=== PATIENT | female | born 1955 | race Caucasian/White ===

== ENCOUNTER 2016-07-10 14:00 | Inpatient (IN) | payer OTHER ==
--- NOTE | 2016-07-10 14:27 | ED ---
SOB HPI - General Chief Complaint: Shortness of Breath Stated Complaint: Vaginal bleeding Time Seen by Provider: 07/10/16 14:00 Source: patient, EMS, RN notes reviewed Mode of arrival: EMS Limitations: no limitations - History of Present Illness Initial Comments: This is a 60-year-old female who states she has not seen a doctor in 25 years who is brought in today because of vaginal bleeding has been cooperative past 2 days and shortness of breath. The patient is a smoker she states she's never been diagnosed with COPD. She states she's had right red blood from her vagina she Have a history of vaginal warts. She also states she's had bowel surgery because of blockages in the past. She denies any nausea vomiting she denies any difficulty with bowel movements or passing gas. She does states she has not eaten any food for 2 days she feels very weak. She was brought in by EMS. On arrival she was found have a blood pressure 94/52 she denies any fevers chills sweats she states she does have intermittent abdominal pain. Patient states she also lost her voice over the last couple days. MD Complaint: shortness of breath - Related Data Home Medications Medication Instructions Recorded Confirmed No Known Home Medications [No 07/10/16 07/10/16 Known Home Medications] Allergies Allergy/AdvReac Type Severity Reaction Status Date / Time Penicillins Allergy Unknown Verified 07/10/16 14:30 Review of Systems ROS Statement: Those systems with pertinent positive or pertinent negative responses have been documented in the HPI. ROS Other: All systems not noted in ROS Statement are negative. General Exam - General Exam Comments Initial Comments: This is a well-developed Appearing Female She Does Appear to Be Pale and Somewhat Icteric the patient does demonstrate hoarseness of her voice. Limitations: no limitations General appearance: alert, anxious Head exam: Present: atraumatic Eye exam: Present: PERRL, EOMI ENT exam: Present: mucous membranes dry Neck exam: Present: full ROM. Absent: tenderness, meningismus, lymphadenopathy Respiratory exam: Present: decreased breath sounds Cardiovascular Exam: Present: tachycardia, normal heart sounds. Absent: systolic murmur, diastolic murmur, rubs, gallop, clicks GI/Abdominal exam: Present: other (patient does demonstrate a well-healed no that thi) Rectal exam: Present: other (I did perform rectal exam no gross blood noted the patient's entire perineum does appear to be covered by what appears be genital warts. He was at somewhat painful examination though there is no masses in the anal canal.) External exam: Present: lesions, other (Multiple lesions consistent with genital warts. On a unable to perform a vaginal exam or identified the urethra at this time. No gross bleeding at this time marked tenderness to any type of manipulation.) Extremities exam: Present: normal inspection, full ROM, normal capillary refill. Absent: tenderness, pedal edema, joint swelling, calf tenderness Back exam: Present: normal inspection Neurological exam: Present: alert, oriented X3, CN II-XII intact Psychiatric exam: Present: flat affect Skin exam: Present: warm, dry, intact, pallor Course Vital Signs 07/10/16 07/10/16 07/10/16 14:03 14:07 14:10 Temperature 97.6 F Pulse Rate 49 L 116 H Respiratory 16 20 Rate Blood Pressure 107/57 89/54 O2 Sat by Pulse 94 L Oximetry 07/10/16 07/10/16 07/10/16 14:15 16:03 16:53 Temperature Pulse Rate 60 112 H Respiratory 16 16 Rate Blood Pressure 94/52 103/55 98/61 O2 Sat by Pulse 94 L 98 Oximetry - Reevaluation(s) Reevaluation #1: 07/10/16 17:36 Ventilation patient reveals that she is awake alert and oriented. Patient was found to be extremely anemic and was later found that she also had pancreatitis. Reevaluation #2: 07/10/16 17:36 I did discuss findings with the patient and her as well as a neighbor who was present and did find her at home. Patient will be admitted patient was seen in the emergency department by Dr. Kennedy Reevaluation #3: 07/10/16 17:37 I did discuss case with Dr. Justice for ICU admission. Medical Decision Making - Medical Decision Making I did discuss the findings with the patient and family members as well as the hospitalists and intensivists. Patient be admitted CAT scan of the chest abdomen pelvis as well as brain will be ordered. Neoplasm is suspected. Patient will get a blood transfusion. She currently is hemodynamically relatively stable. - Lab Data Result diagrams: 07/10/16 15:50 07/10/16 15:50 Lab Results 07/10/16 07/10/16 07/10/16 Range/Units 14:30 14:56 15:50 WBC 45.7 H* (3.8-10.6) k/uL RBC 1.78 L (3.80-5.40) m/uL Hgb 3.5 L* (11.4-16.0) gm/dL Hct 12.2 L* (34.0-46.0) % MCV 68.3 L (80.0-100.0) fL MCH 19.8 L (25.0-35.0) pg MCHC 29.0 L (31.0-37.0) g/dL RDW 17.5 H (11.5-15.5) % Plt Count 634 H (150-450) k/uL Neutrophils % 93 % Lymphocytes % 4 % Monocytes % 2 % Eosinophils % 0 % Basophils % 0 % Neutrophils # 42.6 H (1.3-7.7) k/uL Lymphocytes # 1.8 (1.0-4.8) k/uL Monocytes # 0.9 (0-1.0) k/uL Eosinophils # 0.0 (0-0.7) k/uL Basophils # 0.1 (0-0.2) k/uL Manual Slide Review Performed Toxic Granulation Present Polychromasia Present Hypochromasia Marked Poikilocytosis (manual Present Anisocytosis Slight Microcytosis Marked Tear Drop Cells Present Sodium (137-145) mmol/L Potassium (3.5-5.1) mmol/L Chloride (98-107) mmol/L Carbon Dioxide (22-30) mmol/L Anion Gap mmol/L BUN (7-17) mg/dL Creatinine (0.52-1.04) mg/dL Est GFR (MDRD) Af Amer (>60 ml/min/1.73 sqM) Est GFR (MDRD) Non-Af (>60 ml/min/1.73 sqM) Glucose (74-99) mg/dL Calcium (8.4-10.2) mg/dL Magnesium (1.6-2.3) mg/dL Total Bilirubin (0.2-1.3) mg/dL AST (14-36) U/L ALT (9-52) U/L Alkaline Phosphatase (38-126) U/L Ammonia 21 (<30) umol/L Total Creatine Kinase (30-135) U/L CK-MB (CK-2) (0.0-2.4) ng/mL CK-MB (CK-2) Rel Index Total Protein (6.3-8.2) g/dL Albumin (3.5-5.0) g/dL Amylase (30-110) U/L Lipase (23-300) U/L Stool Occult Blood Negative (Negative) 07/10/16 07/10/16 Range/Units 15:50 15:50 WBC (3.8-10.6) k/uL RBC (3.80-5.40) m/uL Hgb (11.4-16.0) gm/dL Hct (34.0-46.0) % MCV (80.0-100.0) fL MCH (25.0-35.0) pg MCHC (31.0-37.0) g/dL RDW (11.5-15.5) % Plt Count (150-450) k/uL Neutrophils % % Lymphocytes % % Monocytes % % Eosinophils % % Basophils % % Neutrophils # (1.3-7.7) k/uL Lymphocytes # (1.0-4.8) k/uL Monocytes # (0-1.0) k/uL Eosinophils # (0-0.7) k/uL Basophils # (0-0.2) k/uL Manual Slide Review Toxic Granulation Polychromasia Hypochromasia Poikilocytosis (manual Anisocytosis Microcytosis Tear Drop Cells Sodium 135 L (137-145) mmol/L Potassium 3.9 (3.5-5.1) mmol/L Chloride 111 H (98-107) mmol/L Carbon Dioxide 16 L (22-30) mmol/L Anion Gap 8 mmol/L BUN 22 H (7-17) mg/dL Creatinine 0.73 (0.52-1.04) mg/dL Est GFR (MDRD) Af Amer >60 (>60 ml/min/1.73 sqM) Est GFR (MDRD) Non-Af >60 (>60 ml/min/1.73 sqM) Glucose 106 H (74-99) mg/dL Calcium 8.4 (8.4-10.2) mg/dL Magnesium 2.1 (1.6-2.3) mg/dL Total Bilirubin 0.3 (0.2-1.3) mg/dL AST 31 (14-36) U/L ALT 26 (9-52) U/L Alkaline Phosphatase 130 H (38-126) U/L Ammonia (<30) umol/L Total Creatine Kinase 513 H (30-135) U/L CK-MB (CK-2) 24.9 H* (0.0-2.4) ng/mL CK-MB (CK-2) Rel Index 4.9 Total Protein 5.1 L (6.3-8.2) g/dL Albumin 2.0 L (3.5-5.0) g/dL Amylase 319 H* (30-110) U/L Lipase 1133 H (23-300) U/L Stool Occult Blood (Negative) - EKG Data -: EKG Interpreted by Me EKG shows normal: sinus rhythm (Sinus tachycardia rate of 112. Interval 126 QRS duration 74 daily since QTC of 334/[address] configuration.) - Radiology Data Radiology results: report reviewed (I did review the initial imaging a reports no acute findings.), image reviewed Critical Care Time Critical Care Time: Yes Critical Care Time: 37 minutes of critical care time which includes initial discussion with paramedics history physical labs x-rays evaluation the above. Reevaluation the patient and discussion with the patient family members as well as discussion with the admitting physician and radiological health specialist. Documentation of the above and initial orders. Disposition Clinical Impression: Anemia, Pancreatitis, Weakness, Genital warts, Dehydration Disposition: ADMITTED IP TO THIS [facility] Condition: Serious
[2016-07-10] MEDS ORDERED: SODIUM CHLORIDE 0.9% 500 ML IV STA (15:12)
[2016-07-10] MEDS ORDERED: SODIUM CHLORIDE 0.9% 1,000 ML IV STA (15:12)
--- NOTE | 2016-07-10 16:16 | XR ---
EXAMINATION TYPE: XR chest 2V DATE OF EXAM: 07/10/2016 4:13 PM COMPARISON: NONE HISTORY: Shortness of breath TECHNIQUE: Frontal and lateral views of the chest are obtained. FINDINGS: Scattered senescent parenchymal changes noted. Hyperinflation compatible with COPD. No evidence for infiltrate. No evidence for atelectasis. Heart size is stable. Mediastinal structures are stable and grossly unremarkable. No evidence for hilar prominence. Degenerative changes dorsal spine. IMPRESSION: 1. No evidence for acute pulmonary disease.
--- NOTE | 2016-07-10 16:17 | XR ---
EXAMINATION TYPE: XR abdomen 1V DATE OF EXAM: 07/10/2016 4:13 PM COMPARISON: NONE HISTORY: Pain TECHNIQUE: Single supine KUB image of the abdomen is obtained FINDINGS: Small bowel demonstrates no evidence for dilatation or air fluid levels. Gas and fecal material is seen in non-distended colon. No convincing evidence for pneumoperitoneum. No unusual calcifications. The lung bases are clear. The osseous structures are intact. IMPRESSION: 1. Overall nonobstructive bowel gas pattern.
[2016-07-10 16:24] LABS: Anisocytosis Slight; Basophils # (A) 0.1 k/uL (0-0.2); Basophils % (A) 0 %; CHCM 25.1; Eosinophils % (A) 0 %; HDW 2.87; Hypochromasia Marked; Luc # (Auto) 0.29; Luc % (Auto) 1; Lymphocytes # (A) 1.8 k/uL (1.0-4.8); Lymphocytes % (A) 4 %; MCH 19.8 pg (25.0-35.0); MCV 68.3 fL (80.0-100.0); Mean Platelet Volume 6.3; Microcytosis Marked; Monocytes # (A) 0.9 k/uL (0-1.0); Monocytes % (A) 2 %; Neutrophils # (A) 42.6 k/uL (1.3-7.7); Neutrophils % (A) 93 %; RBC 1.78 m/uL (3.80-5.40); RDW 17.5 % (11.5-15.5); WBC (Perox) 47.22
[2016-07-10 16:27] LABS: HGB 3.5 gm/dL (11.4-16.0); WBC 45.7 k/uL (3.8-10.6)
[2016-07-10 16:28] LABS: HCT 12.2 % (34.0-46.0)
[2016-07-10 16:30] LABS: ALT 26 U/L (9-52); AST 31 U/L (14-36); Alkaline Phosphatase 130 U/L (38-126); Anion Gap 8 mmol/L; Blood Urea Nitrogen 22 mg/dL (7-17); Calcium 8.4 mg/dL (8.4-10.2); Carbon Dioxide 16 mmol/L (22-30); Chloride 111 mmol/L (98-107); Glucose 106 mg/dL (74-99); Magnesium 2.1 mg/dL (1.6-2.3); Non-African American GFR(MDRD) >60 (>60 ml/min/1.73 sqM); Potassium 3.9 mmol/L (3.5-5.1); Sodium 135 mmol/L (137-145); Total Bilirubin 0.3 mg/dL (0.2-1.3); Total Protein 5.1 g/dL (6.3-8.2)
[2016-07-10 16:44] LABS: Amylase 319 U/L (30-110)
[2016-07-10 16:51] LABS: Creatine Kinase MB 24.9 ng/mL (0.0-2.4)
[2016-07-10 16:59] LABS: Manual Review Performed; Polychromasia Present; Tear Drop Cells Present
[2016-07-10 17:01] LABS: Toxic Granulation Present
[2016-07-10] MEDS ORDERED: RX INFO: IV CONTRAST WAS GIVEN 1 EACH MISC MISCELLANE PRN (17:19)
[2016-07-10] MEDS ORDERED: IOHEXOL 350 MG/ML 25 ML BOTTLE (ORAL USE) PO PRN (17:19)
[2016-07-10] MEDS ORDERED: NALOXONE 0.4 MG/ML 1 ML VIAL IV PRN (17:40)
--- NOTE | 2016-07-10 17:40 | ED ---
Medical Decision Making - Lab Data Result diagrams: 07/10/16 15:50 07/10/16 15:50 Lab Results 07/10/16 07/10/16 07/10/16 Range/Units 14:30 14:56 15:50 WBC 45.7 H* (3.8-10.6) k/uL RBC 1.78 L (3.80-5.40) m/uL Hgb 3.5 L* (11.4-16.0) gm/dL Hct 12.2 L* (34.0-46.0) % MCV 68.3 L (80.0-100.0) fL MCH 19.8 L (25.0-35.0) pg MCHC 29.0 L (31.0-37.0) g/dL RDW 17.5 H (11.5-15.5) % Plt Count 634 H (150-450) k/uL Neutrophils % 93 % Lymphocytes % 4 % Monocytes % 2 % Eosinophils % 0 % Basophils % 0 % Neutrophils # 42.6 H (1.3-7.7) k/uL Lymphocytes # 1.8 (1.0-4.8) k/uL Monocytes # 0.9 (0-1.0) k/uL Eosinophils # 0.0 (0-0.7) k/uL Basophils # 0.1 (0-0.2) k/uL Manual Slide Review Performed Toxic Granulation Present Polychromasia Present Hypochromasia Marked Poikilocytosis (manual Present Anisocytosis Slight Microcytosis Marked Tear Drop Cells Present Sodium (137-145) mmol/L Potassium (3.5-5.1) mmol/L Chloride (98-107) mmol/L Carbon Dioxide (22-30) mmol/L Anion Gap mmol/L BUN (7-17) mg/dL Creatinine (0.52-1.04) mg/dL Est GFR (MDRD) Af Amer (>60 ml/min/1.73 sqM) Est GFR (MDRD) Non-Af (>60 ml/min/1.73 sqM) Glucose (74-99) mg/dL Calcium (8.4-10.2) mg/dL Magnesium (1.6-2.3) mg/dL Total Bilirubin (0.2-1.3) mg/dL AST (14-36) U/L ALT (9-52) U/L Alkaline Phosphatase (38-126) U/L Ammonia 21 (<30) umol/L Total Creatine Kinase (30-135) U/L CK-MB (CK-2) (0.0-2.4) ng/mL CK-MB (CK-2) Rel Index Total Protein (6.3-8.2) g/dL Albumin (3.5-5.0) g/dL Amylase (30-110) U/L Lipase (23-300) U/L Stool Occult Blood Negative (Negative) 07/10/16 07/10/16 Range/Units 15:50 15:50 WBC (3.8-10.6) k/uL RBC (3.80-5.40) m/uL Hgb (11.4-16.0) gm/dL Hct (34.0-46.0) % MCV (80.0-100.0) fL MCH (25.0-35.0) pg MCHC (31.0-37.0) g/dL RDW (11.5-15.5) % Plt Count (150-450) k/uL Neutrophils % % Lymphocytes % % Monocytes % % Eosinophils % % Basophils % % Neutrophils # (1.3-7.7) k/uL Lymphocytes # (1.0-4.8) k/uL Monocytes # (0-1.0) k/uL Eosinophils # (0-0.7) k/uL Basophils # (0-0.2) k/uL Manual Slide Review Toxic Granulation Polychromasia Hypochromasia Poikilocytosis (manual Anisocytosis Microcytosis Tear Drop Cells Sodium 135 L (137-145) mmol/L Potassium 3.9 (3.5-5.1) mmol/L Chloride 111 H (98-107) mmol/L Carbon Dioxide 16 L (22-30) mmol/L Anion Gap 8 mmol/L BUN 22 H (7-17) mg/dL Creatinine 0.73 (0.52-1.04) mg/dL Est GFR (MDRD) Af Amer >60 (>60 ml/min/1.73 sqM) Est GFR (MDRD) Non-Af >60 (>60 ml/min/1.73 sqM) Glucose 106 H (74-99) mg/dL Calcium 8.4 (8.4-10.2) mg/dL Magnesium 2.1 (1.6-2.3) mg/dL Total Bilirubin 0.3 (0.2-1.3) mg/dL AST 31 (14-36) U/L ALT 26 (9-52) U/L Alkaline Phosphatase 130 H (38-126) U/L Ammonia (<30) umol/L Total Creatine Kinase 513 H (30-135) U/L CK-MB (CK-2) 24.9 H* (0.0-2.4) ng/mL CK-MB (CK-2) Rel Index 4.9 Total Protein 5.1 L (6.3-8.2) g/dL Albumin 2.0 L (3.5-5.0) g/dL Amylase 319 H* (30-110) U/L Lipase 1133 H (23-300) U/L Stool Occult Blood (Negative) Disposition Clinical Impression: Anemia, Pancreatitis, Weakness, Genital warts, Dehydration Disposition: ADMITTED IP TO THIS [facility] Condition: Serious Referrals: None,Stated [Primary Care Provider] - 1-2 days Decision Time: 16:30
[2016-07-10] MEDS ORDERED: NICOTINE 14MG/24HR PATCH TRANSDERM STA (17:42)
--- NOTE | 2016-07-10 17:57 | ED ---
Medical Decision Making - Medical Decision Making Due to the fungating nature of the lesion SAND CUTTER OPERATOR is being consulted I did discuss the case with Dr. Jansen - Lab Data Result diagrams: 07/10/16 15:50 07/10/16 15:50 Lab Results 07/10/16 07/10/16 07/10/16 Range/Units 14:30 14:56 15:50 WBC 45.7 H* (3.8-10.6) k/uL RBC 1.78 L (3.80-5.40) m/uL Hgb 3.5 L* (11.4-16.0) gm/dL Hct 12.2 L* (34.0-46.0) % MCV 68.3 L (80.0-100.0) fL MCH 19.8 L (25.0-35.0) pg MCHC 29.0 L (31.0-37.0) g/dL RDW 17.5 H (11.5-15.5) % Plt Count 634 H (150-450) k/uL Neutrophils % 93 % Lymphocytes % 4 % Monocytes % 2 % Eosinophils % 0 % Basophils % 0 % Neutrophils # 42.6 H (1.3-7.7) k/uL Lymphocytes # 1.8 (1.0-4.8) k/uL Monocytes # 0.9 (0-1.0) k/uL Eosinophils # 0.0 (0-0.7) k/uL Basophils # 0.1 (0-0.2) k/uL Manual Slide Review Performed Toxic Granulation Present Polychromasia Present Hypochromasia Marked Poikilocytosis (manual Present Anisocytosis Slight Microcytosis Marked Tear Drop Cells Present Sodium (137-145) mmol/L Potassium (3.5-5.1) mmol/L Chloride (98-107) mmol/L Carbon Dioxide (22-30) mmol/L Anion Gap mmol/L BUN (7-17) mg/dL Creatinine (0.52-1.04) mg/dL Est GFR (MDRD) Af Amer (>60 ml/min/1.73 sqM) Est GFR (MDRD) Non-Af (>60 ml/min/1.73 sqM) Glucose (74-99) mg/dL Calcium (8.4-10.2) mg/dL Magnesium (1.6-2.3) mg/dL Total Bilirubin (0.2-1.3) mg/dL AST (14-36) U/L ALT (9-52) U/L Alkaline Phosphatase (38-126) U/L Ammonia 21 (<30) umol/L Total Creatine Kinase (30-135) U/L CK-MB (CK-2) (0.0-2.4) ng/mL CK-MB (CK-2) Rel Index Total Protein (6.3-8.2) g/dL Albumin (3.5-5.0) g/dL Amylase (30-110) U/L Lipase (23-300) U/L Stool Occult Blood Negative (Negative) 07/10/16 07/10/16 Range/Units 15:50 15:50 WBC (3.8-10.6) k/uL RBC (3.80-5.40) m/uL Hgb (11.4-16.0) gm/dL Hct (34.0-46.0) % MCV (80.0-100.0) fL MCH (25.0-35.0) pg MCHC (31.0-37.0) g/dL RDW (11.5-15.5) % Plt Count (150-450) k/uL Neutrophils % % Lymphocytes % % Monocytes % % Eosinophils % % Basophils % % Neutrophils # (1.3-7.7) k/uL Lymphocytes # (1.0-4.8) k/uL Monocytes # (0-1.0) k/uL Eosinophils # (0-0.7) k/uL Basophils # (0-0.2) k/uL Manual Slide Review Toxic Granulation Polychromasia Hypochromasia Poikilocytosis (manual Anisocytosis Microcytosis Tear Drop Cells Sodium 135 L (137-145) mmol/L Potassium 3.9 (3.5-5.1) mmol/L Chloride 111 H (98-107) mmol/L Carbon Dioxide 16 L (22-30) mmol/L Anion Gap 8 mmol/L BUN 22 H (7-17) mg/dL Creatinine 0.73 (0.52-1.04) mg/dL Est GFR (MDRD) Af Amer >60 (>60 ml/min/1.73 sqM) Est GFR (MDRD) Non-Af >60 (>60 ml/min/1.73 sqM) Glucose 106 H (74-99) mg/dL Calcium 8.4 (8.4-10.2) mg/dL Magnesium 2.1 (1.6-2.3) mg/dL Total Bilirubin 0.3 (0.2-1.3) mg/dL AST 31 (14-36) U/L ALT 26 (9-52) U/L Alkaline Phosphatase 130 H (38-126) U/L Ammonia (<30) umol/L Total Creatine Kinase 513 H (30-135) U/L CK-MB (CK-2) 24.9 H* (0.0-2.4) ng/mL CK-MB (CK-2) Rel Index 4.9 Total Protein 5.1 L (6.3-8.2) g/dL Albumin 2.0 L (3.5-5.0) g/dL Amylase 319 H* (30-110) U/L Lipase 1133 H (23-300) U/L Stool Occult Blood (Negative) Disposition Clinical Impression: Anemia, Pancreatitis, Weakness, Genital warts, Dehydration Disposition: ADMITTED IP TO THIS [facility] Condition: Serious
[2016-07-10] MEDS ORDERED: TEMAZEPAM 15 MG CAP PO PRN (18:44)
[2016-07-10] MEDS ORDERED: ALPRAZolam 0.25 MG TAB PO PRN (18:44)
[2016-07-10 18:50] LABS: Glucose,Whole Blood 102 mg/dL (75-99)
[2016-07-10 18:50] LABS: Glucose,Whole Blood 56 mg/dL (75-99)
[2016-07-10 19:06] VITALS: BMI 18.1
[2016-07-10 19:06] LABS: Appearance,Urine Cloudy (Clear); Bacteria,Urine Many /hpf; Bilirubin,Urine Negative (Negative); Glucose,Urine (UA) Negative (Negative); Ketones,Urine Negative (Negative); Leukocyte Esterase,Urine Large (Negative); Mucus,Urine Few /hpf; Nitrite,Urine Positive (Negative); PH, Urine 5.5 (5.0-8.0); Particle Count 38062; Protein,Urine Trace (Negative); RBC,Urine 3 /hpf (0-5); Specific Gravity,Urine 1.015 (1.001-1.035); Squamous Epithelial Cell,Urine 5 /hpf (0-4); UA Billing (MACRO vs. MICRO) MICRO; Urobilinogen,Urine <2.0 mg/dL (<2.0); WBC,Urine 39 /hpf (0-5)
--- NOTE | 2016-07-10 19:48 | CT ---
EXAMINATION TYPE: CT brain wo con DATE OF EXAM: 07/10/2016 7:45 PM COMPARISON: NONE HISTORY: Vaginal bleeding. Confusion. CT DLP: 1012.7 mGycm Automated exposure control for dose reduction was used. FINDINGS: There is mild cerebral cortical atrophy. There is no mass effect nor midline shift. There is no sign of intracranial hemorrhage. The calvarium is intact. Exam is limited slightly by motion. IMPRESSION: Mild atrophy. Otherwise negative exam. No acute abnormality.
[2016-07-10] MEDS ORDERED: IPRATROPIUM-ALBUTEROL 3 ML NEB INHALATION SCH (20:00)
[2016-07-10] MEDS ORDERED: LEVOFLOXACIN 500MG-D5W PMX 500 MG in DEXTROSE/WATER 1 100ML.BAG IVPB SCH (20:00)
--- NOTE | 2016-07-10 20:02 | CT ---
EXAMINATION TYPE: CT ChestAbdPelvis w con DATE OF EXAM: 07/10/2016 7:45 PM COMPARISON: NONE HISTORY: Vaginal bleeding and abdominal pain. CT DLP: 416.7 mGycm Automated exposure control for dose reduction was used. CONTRAST: CT scan of the chest, abdomen and pelvis is performed with Oral Contrast and with IV Contrast, patien t injected with 100 mL of Omnipaque 300. FINDINGS: There is mild linear density at the anterior segment of the right upper lobe consistent with scarring . There is a 2 cm rounded nodular density at the left cardiac border. There is some mild reticular in filtrate at the left posterior lung base. There are paratracheal lymph nodes that measure up to 1.5 cm. There are no hilar masses. Thoracic aor ta shows mild atheromatous change. There is no evidence of dissection. There is atherosclerotic calci fication in the abdominal aorta with probably some stenosis in the lower aorta at the bifurcation. Liver shows no focal defect. There is no evidence of a splenic mass. There is no pancreatic mass. The re is some mild fluid in the left upper quadrant. There are some distended loops of small bowel in the mid abdomen. These measure up to 3.7 cm. There i s narrowing at the gastric antrum that probably is due to peristalsis. Kidneys have normal size and contour. There is no hydronephrosis. There is no adrenal mass. There is no retroperitoneal adenopathy. There is no sign of free air. There is some annular narrowing of a loop of bowel in the lower abdomen with suggestion of wall thickening. The colon is not dilated. Uterus is anteverted. I see no pelvic mass. Bladder distends smoothly. There is 15% compression deformity of L3 vertebra. There is 10% wedg ing of L2 to. There is 30% anterior wedging of T11. . IMPRESSION: There is a discrete mass in the left lower lobe at the left cardiac border. Tumor is a possibility. 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 There is evidence for a partial mechanical small bowel obstruction. Tu mor should be considered. Mild ascites. Atherosclerotic vascular disease with some degree of stenosis in the distal abdominal a bradley. Multiple compression fractures probably due to osteoporosis.
[2016-07-10] MEDS: PANTOPRAZOLE 40 MG/10 ML VIAL IVP SCH (21:19)
[2016-07-10] MEDS: NICOTINE 14MG/24HR PATCH TRANSDERM SCH (21:19)
[2016-07-10] MEDS ORDERED: IPRATROPIUM-ALBUTEROL 3 ML NEB INHALATION PRN (21:23)
[2016-07-10] MEDS: metroNIDAZOLE-NS PMX 500 MG in SALINE 1 100ML.BAG IVPB SCH (23:36)
--- NOTE | 2016-07-11 05:22 | HP ---
DATE OF ADMISSION: The chief complaints are vaginal bleeding and as well as generalized weakness. HISTORY OF PRESENT ILLNESS: This 60-year-old woman with a past medical history of Crohn disease, history of perineal warts, history of anxiety, history of abdominal surgery at [facility] several years not being followed by any primary physician for several years was brought to [facility] by the neighbor. Because the patient is getting progressively weak and patient also has apparent vaginal bleeding, the patient was evaluated in the ER and was found to have fungating mass in the vaginal area. The patient's pelvic exam could hardly be done and the patient was admitted for further evaluation and treatment. Of note on admission, the hemoglobin was found to be 3.5 and the WBC elevated to 45.7. Sodium is 135 and CK-MB 24.9. Amylase 319. Lipase was 1133. Stool occult blood was negative. There was no history of any fever, rigors or chills. No history of headache, loss of consciousness or seizures. PAST MEDICAL HISTORY: History of Crohn disease, history of abdominal surgery, history of vaginal warts, history of bowel resection, anxiety, history of nicotine dependence. The medications prior to admission: None. ALLERGIES: PENICILLIN. FAMILY HISTORY: No history of heart disease or strokes in the family. SOCIAL HISTORY: History of smoking on a daily basis. REVIEW OF SYSTEMS: ENT: No diminished hearing or diminished vision. CARDIOVASCULAR: As mentioned earlier. RESPIRATORY: As mentioned earlier. GI: As mentioned earlier. : As mentioned earlier. NERVOUS SYSTEM: As mentioned earlier. ALLERGY/IMMUNOLOGY: No history of asthma. MUSCULOSKELETAL: As mentioned earlier. HEMATOLOGY/ONCOLOGY: As mentioned earlier. ENDOCRINE: No history of diabetes mellitus or hypothyroidism. CONSTITUTIONAL: As mentioned earlier. DERMATOLOGY: Negative. RHEUMATOLOGY: Negative. PSYCHIATRY: As mentioned earlier. PHYSICAL EXAMINATION: The patient is alert and oriented x3. Pulse 102, blood pressure 108/52, respiration 16, temperature 98.5, pulse ox 94% on 2 L. HEENT: Conjunctivae normal. Oral mucosa moist. Oral mucosa pale also. NECK: No jugular venous distention. No carotid bruit. No lymph node enlargement. CARDIOVASCULAR: S1 and S2, muffled. No S3, no S4. RESPIRATORY: Breath sounds diminished at the bases. A few scattered rhonchi, no crackles. ABDOMEN: Soft, scaphoid. No mass palpable. Nontender. A significant fungating mass around the vaginal area present, slightly tender and foul smelling also. LEGS: No edema, no swelling. NERVOUS SYSTEM: Higher function as mentioned. Moves all 4l limbs. No focal motor or sensory deficits. LYMPHATICS: No lymphadenopathy of neck, axillae or groin. SKIN: No ulcers, rashes or bleeding. JOINTS: No active deforming arthropathy. Labs are WBC 45.7, hemoglobin 3.5, MCV 68.3. Sodium 135. Total creatine kinase 513. CK-MB is 24.9. Amylase 319 and lipase 1133. ASSESSMENT: 1. Acute severe anemia, possibly rule out genitourinary bleeding, rule out gastrointestinal bleeding with acute blood loss anemia. 2. Microcytic anemia. 3. Elevated WBC, possibly secondary to cellulitic infection. 4. Fungating mass in the vagina area, possibly malignancy with superadded cellulitis. 5. Increased platelets. 6. Hyponatremia. 7. Decreased CO2. 8. Increased creatinine kinase and CK-MB. 9. Increased amylase and lipase, post acute mild pancreatitis. 10. Severe protein calorie malnutrition with a BMI of 18.2. 11. History of Crohn disease and abdominal surgery with bowel resection. 12. History of anxiety, not otherwise specified. 13. Continued ongoing nicotine dependence. 14. FULL CODE. RECOMMENDATIONS AND DISCUSSION: This 60-year-old woman presented with multiple complex medical issues, will monitor the patient closely. Continue the current medications, continue the symptomatic treatment. Otherwise will initiate at least 3 units of transfusion with after each transfusion. Monitor hemodynamics closely. Admit to ICU. ICU evaluation, ACTUARIAL ASSOCIATE has been consulted, possible biopsy. Otherwise, I would also recommend empiric antibiotics because of the possibility of secondary infection. Otherwise, will follow the patient closely. With the patient importance of compliance also stressed and discussed with family. Apparently the patient also had some other social issues also even though they are her is away from the home like up to 2 weeks at a stretch and at this time she reports to that her or other family members not give any information and specifically to her brother. I would recommend a social service and case management consultation to follow up on this. Otherwise, prognosis guarded because of multiple complex medical issues. Further recommendations to follow. Discussed with the patient and understands and agrees. SHANA
[2016-07-11] MEDS: HYDROmorphone 1 MG/ML 1 ML SYRINGE IVP PRN ×2 (06:22→14:17)
[2016-07-11] MEDS: IPRATROPIUM-ALBUTEROL 3 ML NEB INHALATION SCH ×2 (08:19→12:02)
[2016-07-11 08:38] LABS: Prothrombin Time 10.6 sec (9.0-12.0)
[2016-07-11 08:54] LABS: Anisocytosis Slight; Basophils # (A) 0.1 k/uL (0-0.2); Basophils % (A) 0 %; CH 25.6; CHCM 31.5; Eosinophils # (A) 0.1 k/uL (0-0.7); Eosinophils % (A) 0 %; HCT 29.5 % (34.0-46.0); HDW 5.33; Hypochromasia Marked; Luc # (Auto) 0.24; Luc % (Auto) 1; Lymphocytes # (A) 1.5 k/uL (1.0-4.8); Lymphocytes % (A) 4 %; MCH 25.3 pg (25.0-35.0); MCHC 31.5 g/dL (31.0-37.0); Mean Platelet Volume 7.1; Microcytosis Slight; Monocytes # (A) 1.2 k/uL (0-1.0); Monocytes % (A) 3 %; Neutrophils # (A) 34.9 k/uL (1.3-7.7); Neutrophils % (A) 92 %; Poikilocytosis Marked; RBC 3.66 m/uL (3.80-5.40); RDW 19.6 % (11.5-15.5); WBC (Perox) 37.76
[2016-07-11 09:02] LABS: Amylase 230 U/L (30-110); Anion Gap 9 mmol/L; Blood Urea Nitrogen 20 mg/dL (7-17); Calcium 7.9 mg/dL (8.4-10.2); Carbon Dioxide 14 mmol/L (22-30); Chloride 111 mmol/L (98-107); Glucose 95 mg/dL (74-99); Non-African American GFR(MDRD) >60 (>60 ml/min/1.73 sqM); Potassium 3.5 mmol/L (3.5-5.1); Sodium 134 mmol/L (137-145)
[2016-07-11] MEDS: metroNIDAZOLE-NS PMX 500 MG in SALINE 1 100ML.BAG IVPB SCH (09:06)
[2016-07-11] MEDS: NICOTINE 14MG/24HR PATCH TRANSDERM SCH ×2 (09:06→09:13)
[2016-07-11] MEDS: PANTOPRAZOLE 40 MG/10 ML VIAL IVP SCH (09:06)
[2016-07-11 09:09] LABS: HGB 9.3 gm/dL (11.4-16.0); WBC 37.9 k/uL (3.8-10.6)
[2016-07-11 09:10] LABS: MCV 80.6 fL (80.0-100.0)
[2016-07-11 10:34] LABS: Manual Review Performed; Toxic Granulation Present
[2016-07-11 10:35] LABS: Polychromasia Present
--- NOTE | 2016-07-11 11:10 | DS ---
DATE OF ADMISSION: 07/10/2016 DATE OF DISCHARGE: FINAL DIAGNOSES: 1. Acute severe anemia, possibly multifactorial from genitourinary bleeding and possibly from genitourinary malignancy. 2. Huge fungating mass, probably secondary infected mass in the vaginal area externally visible, possible malignancy with superadded cellulitis. 3. Microcytic anemia. 4. Elevated WBC, possibly reactive to malignancy as well as to possibly due to cellulitis. 5. Increased platelets. 6. Hyponatremia. 7. Decreased CO2. 8. Increased creatinine kinase and CK-MB. 9. Increased amylase, lipase, possible acute mild pancreatitis. 10. Nodular lesion on the CT scan in the chest. 11. Rule out partial small bowel obstruction. 12. Severe protein calorie malnutrition, BMI of 18.2. 13. History of Crohn disease and abdominal surgery with bowel resection. 14. History of anxiety, not otherwise specified. 15. Continued ongoing nicotine dependence. 16. FULL CODE. DISCHARGE DISPOSITION: The patient will be discharged in stable condition with guarded prognosis. The patient will be transferred to [facility]. Total time taken 35 minutes. HISTORY OF PRESENT ILLNESS: This 60-year-old woman with a past medical history of multiple medical problems admitted with acute severe anemia and as well as huge fungating ulcerated foul smelling mass in the vaginal and private areas, highly suspicious malignancy. Hemoglobin was 3.5 after transfusion improved to 9.5 and the patient will be transferred to a tertiary care center at [facility] for further evaluation and treatment. The patient has not seen a physician in a long time. On exam, vitals are stable. CARDIOVASCULAR: S1, S2 muffled. ABDOMEN: Soft. NERVOUS SYSTEM: No focal deficits. An extremely large fungating mass present in the genital area. Otherwise as mentioned, WBC 37.9, hemoglobin 9.3. Current patient is on Levaquin and Flagyl. Amylase and lipase improved to 230 and 625. Please refer to the medication reconciliation sheet for list of medications.
--- NOTE | 2016-07-11 11:25 | CONS ---
DATE OF CONSULTATION: A 60-year-old female who apparently has not seen a doctor in over 25 years. Brought in because of vaginal bleeding. Seen in the ER by Dr. Seth Stein. She was found to have a very low hemoglobin. I believe it was initially at 3.5 and she has received 3 units of PRBCs. 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 She thinks that condyloma are going to soon obstruct her urethra. Anyway, the patient has received 3 units of blood. She is on O2 at 2 L. She is on IV at 0.9 at 75 mL an hour. The plan is to possibly transfer her to [facility]. Her blood pressure was borderline low when she first came in at 94/52, but she was asymptomatic from that. Her home medications were none. Allergies were PENICILLIN. Medical history was apparently negative. Surgical history was negative. The rest of her history is not too remarkable. Again, she has not seen a doctor in years. REVIEW OF SYSTEMS: CONSTITUTIONAL: Weakness. NEUROLOGIC: Negative. HEENT: Negative. CARDIOVASCULAR: Negative. PULMONARY: Shortness of breath, resolved. GI/: Negative. RHEUMATOLOGICAL/IMMUNOLOGIC: Negative. ENDOCRINOLOGIC: Negative. Current vital signs include a temperature 99.4, heart rate 98, respiratory rate 24, blood pressure 101/59, mean 73, 2 L saturation is 100%. Appears in no acute distress. HEENT examination is grossly unremarkable. Mucous membranes are moist. No oral lesions. Neck is supple. Full range of motion. No adenopathy or thyromegaly. Cardiovascular examination reveals regular rhythm and rate. Heart rate 90. It is regular. S1, S2 normal. Lungs are clear, breath sounds equal. No wheezes or rhonchi. Abdomen is soft. Bowel sounds are heard. Extremities are intact. No cyanosis, clubbing or edema. Skin is without rash. Neurologic examination is nonfocal. Labs are reviewed. White count 37.9 down from 45.7, hemoglobin 9.3, hematocrit 29.5, platelet count of 529,000. Initial hemoglobin was 3.5. PT, INR, PTT is normal. Sodium 134, potassium 3.5, chloride is 111, CO2 of 14, BUN and creatinine were 20 and 0.62. Anion gap is 9. Amylase was 319 to 230. Lipase is 1133 down to 625. Urine suggests a possible bladder infection. The patient's brain CT was showing mild atrophy, but no acute abnormalities. She had a chest, abdomen and pelvic CT which showed a discrete mass in left lower lobe at the left cardiac border. A tumor was a possibility. There was some dilated small bowel with annular constricting lesion seen in the lower abdomen that could relate to small bowel tumor as well. There is also evidence of partial mechanical small bowel obstruction. Mild ascites was noted. Mild compression fractures as well. Abdomen x-ray showed a nonobstructive gas bowel pattern and chest x-ray shows it to be normal. Medications are reviewed. ASSESSMENT: 1. Profound anemia with bleeding of unclear etiology. 2. 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 3. Possible small bowel tumor. 4. Pancreatitis. 5. Lung mass. 6. No health care for many, many years. 7. Profound leukocytosis and thrombocytosis. PLAN: Talk to the Primary Service. They are planning to transfer the patient to [facility]. That was a recommendation of Dr. Jansen. Will continue to follow. Prognosis is guarded. Will continue to see her while she is here.
--- NOTE | 2016-07-11 12:14 | P.OBCN ---
History of Present Illness Consult date: 07/11/16 Requesting physician: Quinten Kennedy Chief complaint: Vaginal mass History of present illness: This is a 60 year old female who presented with shortness of breath and confusion. She was evaluated in the ER and found to have a hemoglobin of 3.5. She also was noted to have a vulvar mass that obscured normal anatomy. She has a history of vulvar condyloma that [facility] She states this has gotten slowly worse over the past many years. She is able to urinate and have bowel movements without difficulty. She states the area occasionally bleeds when is gets irritated but no active flow of vaginal or pelvic bleeding has occurred since she went through menopause 15 years ago. She denies blood in stool or urine. 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 Review of Systems Constitutional: Reports fatigue, Reports weakness Breasts: absent: masses, skin changes Cardiovascular: Reports chest pain, Reports irregular heart beat, Reports shortness of breath Respiratory: Denies cough Gastrointestinal: Denies abdominal pain, Denies bloating, Denies BRBPR Musculoskeletal: Reports low back pain Neurological: Denies headaches Past Medical History Past Medical History: No Reported History Additional Past Medical History / Comment(s): Crohns, vaginal warts History of Any Multi-Drug Resistant Organisms: None Reported Past Surgical History: Bowel Resection, Tonsillectomy Additional Past Surgical History / Comment(s): COLONOSCOPY, resection vulvar condyloma Past Anesthesia/Blood Transfusion Reactions: No Reported Reaction Past Psychological History: Anxiety Additional Psychological History / Comment(s): 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 PT IS INDEPENDANT. NO OUTSIDE SERVICES/NO MEDICAL EQUIPMENT. Smoking Status: Current every day smoker Past Alcohol Use History: Rare Additional Past Alcohol Use History / Comment(s): STARTED SMOKING AT AGE 17, SMOKES 1 PPD Past Drug Use History: Cocaine Additional Drug Use History / Comment(s): QUIT COCAINE 1996 - Past Family History Father History Unknown: Yes Mother Additional Family Medical History / Comment(s): AFTER BEING HIT BY CAR Medications and Allergies Home Medications Medication Instructions Recorded Confirmed Type No Known Home Medications [No 07/10/16 07/10/16 History Known Home Medications] Allergies Allergy/AdvReac Type Severity Reaction Status Date / Time Penicillins Allergy Unknown Verified 07/10/16 14:30 Exam - Vital Signs Vital signs: Vital Signs Temp Pulse Resp BP Pulse Ox 07/11/16 11:00 114 H 22 102/56 98 07/11/16 10:30 98 27 H 93/52 99 07/11/16 10:00 97 24 101/59 100 07/11/16 09:30 98 27 H 103/56 100 07/11/16 09:00 99.4 F 101 H 24 94/51 100 07/11/16 08:50 104 H 21 82/46 100 07/11/16 08:40 96 19 83/48 100 07/11/16 08:39 101 H 07/11/16 08:30 100 19 92/49 99 07/11/16 08:20 106 H 22 92/48 100 07/11/16 08:10 103 H 21 101/63 100 07/11/16 08:00 108 H 24 120/68 99 07/11/16 07:50 115 H 41 H 94/61 100 07/11/16 07:40 98 22 98/59 100 07/11/16 07:30 109 H 26 H 93/51 87 L 07/11/16 07:20 99 23 87/48 100 07/11/16 07:10 95 19 82/46 100 07/11/16 07:00 97 24 85/48 100 07/11/16 06:50 95 18 88/51 100 07/11/16 06:40 103 H 35 H 103/57 100 07/11/16 06:30 103 H 56 H 103/57 100 07/11/16 06:20 105 H 23 109/68 100 07/11/16 06:10 104 H 25 H 113/69 100 07/11/16 06:00 116 H 33 H 122/74 100 07/11/16 05:50 112 H 17 111/63 100 07/11/16 05:40 103 H 22 97/61 100 07/11/16 05:30 98 19 93/43 100 07/11/16 05:20 107 H 23 92/44 100 07/11/16 05:10 104 H 23 89/48 99 07/11/16 05:00 113 H 37 H 95/52 100 07/11/16 04:50 107 H 23 86/44 100 07/11/16 04:40 112 H 29 H 91/45 100 07/11/16 04:30 103 H 17 86/50 100 07/11/16 04:20 107 H 25 H 103/64 100 07/11/16 04:10 110 H 24 106/64 100 07/11/16 04:00 110 H 23 105/63 100 07/11/16 03:50 110 H 20 102/58 100 07/11/16 03:40 108 H 22 107/72 100 07/11/16 03:30 111 H 42 H 100 07/11/16 03:27 97.8 F 108 H 14 102/56 100 07/11/16 03:25 97.8 F 102 H 20 97/62 100 07/11/16 03:20 104 H 18 87/44 100 07/11/16 03:10 103 H 34 H 85/47 100 07/11/16 03:00 104 H 24 92/48 100 07/11/16 02:50 102 H 46 H 99/55 100 07/11/16 02:40 103 H 21 98/58 100 07/11/16 02:30 105 H 20 103/58 100 07/11/16 02:20 102 H 33 H 98/57 100 07/11/16 02:10 101 H 18 104/59 100 07/11/16 02:00 103 H 18 99/59 100 07/11/16 01:50 101 H 20 95/54 100 07/11/16 01:40 107 H 20 97/55 100 07/11/16 01:30 107 H 22 96/58 100 07/11/16 01:20 103 H 19 93/49 100 07/11/16 01:10 107 H 19 81/47 100 07/11/16 01:00 103 H 21 91/51 100 07/11/16 00:50 101 H 19 97/62 100 07/11/16 00:48 97.8 F 102 H 20 97/62 07/11/16 00:40 109 H 21 96/58 100 07/11/16 00:30 109 H 17 97/54 100 07/11/16 00:29 97.6 F 111 H 20 97/54 07/11/16 00:20 97.8 F 111 H 26 H 90/51 100 07/11/16 00:12 97.8 F 110 H 16 92/68 07/11/16 00:10 110 H 18 92/48 100 07/11/16 00:00 97.8 F 112 H 23 89/49 100 07/10/16 23:50 114 H 20 90/52 100 07/10/16 23:40 114 H 32 H 101/56 100 07/10/16 23:30 114 H 32 H 94/55 100 07/10/16 23:20 117 H 23 99/58 100 07/10/16 23:10 115 H 27 H 107/56 100 07/10/16 23:00 126 H 23 104/55 100 07/10/16 22:50 124 H 28 H 100/50 100 07/10/16 22:40 117 H 26 H 85/48 100 07/10/16 22:30 117 H 28 H 87/46 100 07/10/16 22:20 118 H 14 86/45 100 07/10/16 22:10 118 H 31 H 83/47 100 07/10/16 22:00 121 H 26 H 84/49 100 07/10/16 21:50 122 H 32 H 87/51 100 07/10/16 21:40 120 H 30 H 90/52 100 07/10/16 21:30 117 H 26 H 93/49 100 07/10/16 21:20 119 H 27 H 85/50 100 07/10/16 21:10 119 H 31 H 81/55 100 07/10/16 21:00 98.2 F 120 H 27 H 80/49 100 07/10/16 20:50 121 H 30 H 140/81 100 07/10/16 20:40 120 H 28 H 140/81 100 07/10/16 20:30 98.2 F 120 H 34 H 140/81 100 07/10/16 20:20 98.2 F 119 H 23 140/81 100 07/10/16 20:10 124 H 27 H 140/81 100 07/10/16 20:00 117 H 23 140/81 100 07/10/16 19:50 113 H 27 H 140/81 100 07/10/16 19:40 120 H 29 H 140/81 100 07/10/16 19:30 100/61 07/10/16 19:20 100/61 07/10/16 19:10 100/61 07/10/16 19:00 115 H 22 80/51 07/10/16 18:52 98.1 F 07/10/16 18:50 119 H 28 H 80/51 07/10/16 18:49 116 H 28 H 80/51 07/10/16 18:40 130 H 29 H 99/55 100 07/10/16 18:30 98.1 F 114 H 22 99/50 100 07/10/16 18:04 98.5 F 114 H 18 103/55 100 Intake and Output 07/10/16 07/11/16 07/11/16 22:59 06:59 14:59 Intake Total 0 930 300 Output Total 150 700 0 Balance -150 230 300 Intake: Intake, IV Titration 300 Amount Sodium Chloride 0.9% 1, 200 000 ml @ 50 mls/hr IV . Q20H STA Rx#:[id number] metroNIDAZOLE-NS PMX 500 100 mg In Saline 1 100ml.bag @ 100 mls/hr IVPB Q8HR RADHA Rx#:[id number] Blood Product 0 930 Rc As-1 Unit 0 310 [id number] Rc As-3 Unit 310 [id number] Rc As-3 Unit 310 [id number] Output: Urine 150 700 0 Other: Voiding Method Bedpan Bedpan Bedpan Diaper Diaper Diaper # Voids 1 # Bowel Movements 1 Weight 40.823 kg 44 kg 44 kg Patient Weight 07/12/16 06:59 Weight 44 kg - OBG Physical Exam Abdomen: no diffuse tenderness, no mass Vulva: both: condyloma (Massice coliform condylomatious changes noted, replacing entire bilateral vulva, obscuring urethra and vaginal opening. Extends to mons pubis and rectum. Purulent drainage, no active bleeding. No ulceration) Results Result Diagrams: 07/11/16 08:04 07/11/16 08:04 Abnormal Lab Results - Last 24 Hours (Table) 07/10/16 07/10/16 07/10/16 Range/Units 18:19 18:30 18:53 WBC (3.8-10.6) k/uL RBC (3.80-5.40) m/uL Hgb (11.4-16.0) gm/dL Hct (34.0-46.0) % RDW (11.5-15.5) % Plt Count (150-450) k/uL Neutrophils # (1.3-7.7) k/uL Monocytes # (0-1.0) k/uL Sodium (137-145) mmol/L Chloride (98-107) mmol/L Carbon Dioxide (22-30) mmol/L BUN (7-17) mg/dL POC Glucose (mg/dL) 56 L 102 H (75-99) mg/dL Calcium (8.4-10.2) mg/dL Amylase (30-110) U/L Lipase (23-300) U/L Urine Appearance Cloudy H (Clear) Urine Protein Trace H (Negative) Urine Nitrite Positive H (Negative) Ur Leukocyte Esterase Large H (Negative) Urine WBC 39 H (0-5) /hpf Urine WBC Clumps Few H (None) /hpf Ur Squamous Epith Cells 5 H (0-4) /hpf Urine Bacteria Many H (None) /hpf Hyaline Casts 5 H (0-2) /lpf Urine Mucus Few H (None) /hpf 07/11/16 07/11/16 Range/Units 08:04 08:04 WBC 37.9 H* (3.8-10.6) k/uL RBC 3.66 L (3.80-5.40) m/uL Hgb 9.3 L D (11.4-16.0) gm/dL Hct 29.5 L (34.0-46.0) % RDW 19.6 H (11.5-15.5) % Plt Count 529 H (150-450) k/uL Neutrophils # 34.9 H (1.3-7.7) k/uL Monocytes # 1.2 H (0-1.0) k/uL Sodium 134 L (137-145) mmol/L Chloride 111 H (98-107) mmol/L Carbon Dioxide 14 L (22-30) mmol/L BUN 20 H (7-17) mg/dL POC Glucose (mg/dL) (75-99) mg/dL Calcium 7.9 L (8.4-10.2) mg/dL Amylase 230 H (30-110) U/L Lipase 625 H (23-300) U/L Urine Appearance (Clear) Urine Protein (Negative) Urine Nitrite (Negative) Ur Leukocyte Esterase (Negative) Urine WBC (0-5) /hpf Urine WBC Clumps (None) /hpf Ur Squamous Epith Cells (0-4) /hpf Urine Bacteria (None) /hpf Hyaline Casts (0-2) /lpf Urine Mucus (None) /hpf CT scan - chest: report reviewed CT scan - abdomen: report reviewed CT scan - pelvis: report reviewed (Uterus normal, no adnexal masses or pelvic lymphadenopathy) Assessment and Plan (1) Anemia Status: Acute (2) Dehydration Status: Acute (3) Genital warts Narrative/Plan: Massive obscuring vulvar lesions consistent with genital condyloma although underlying malignancy should be ruled out by biopsy. I recommend referal to a linux developer oncologist for surgical management due to the significant distortion of normal anatomy. She is at risk of eventual blockage of urethra or anus. Based on imaging there does not appear to be any other internal pelvic pathology. These recommendations were reviewed with Dr. Justice. Status: Acute (4) Pancreatitis Status: Acute (5) Weakness Status: Acute
[2016-07-11 12:32] VITALS: BP 98/64; TEMP 98.4
[2016-07-11 17:06] VITALS: PULSE 107; RESP 20
== END 2016-07-11 17:05 | disposition short-term general hospital (02) | DRG 754 ==
LOC: EC 14:00 → 6ICU 17:40
PROVIDERS: ADMIT Hospitalist; ATTEND Hospitalist
PROC: 30233N1 Transfusion of Nonautologous Red Blood Cells into Peripheral Vein, Percutaneous Approach (ICD-10-PCS; principal; 2016-07-10)
DX: C57.9 Malignant neoplasm of female genital organ, unspecified (principal); E43 Unspecified severe protein-calorie malnutrition; K56.60 Unspecified intestinal obstruction; K85.90 Acute pancreatitis without necrosis or infection, unspecified; R18.8 Other ascites; E87.1 Hypo-osmolality and hyponatremia; K50.90 Crohn's disease, unspecified, without complications; Z68.1 Body mass index [BMI] 19.9 or less, adult; E86.0 Dehydration; D50.0 Iron deficiency anemia secondary to blood loss (chronic); A63.0 Anogenital (venereal) warts; R49.1 Aphonia; I67.9 Cerebrovascular disease, unspecified; N76.2 Acute vulvitis; R53.1 Weakness; D72.829 Elevated white blood cell count, unspecified; D75.89 Other specified diseases of blood and blood-forming organs; R91.8 Other nonspecific abnormal finding of lung field; N93.9 Abnormal uterine and vaginal bleeding, unspecified; F41.9 Anxiety disorder, unspecified; R06.02 Shortness of breath; R00.0 Tachycardia, unspecified; F17.200 Nicotine dependence, unspecified, uncomplicated; Z78.0 Asymptomatic menopausal state; Z90.49 Acquired absence of other specified parts of digestive tract; Z88.0 Allergy status to penicillin; Z87.311 Personal history of (healed) other pathological fracture
CPT/HCPCS: 36415; 70450; 71020; 71260; 74000; 74177; 80048; 80053; 81001; 82140; 82150; 82272; 82550; 82553; 83690; 83735; 85025; 85610; 85730; 86850; 86900; 86901; 86920; 93005; 94640; 99291